=== PATIENT | male | born 1950 | race Caucasian/White ===

== ENCOUNTER 2017-01-13 16:02 | Inpatient (IN) | payer MEDICARE ==
[2017-01-13] MEDS ORDERED: Sodium Chloride 0.9% 1,000 ML IV SCH (16:45)
--- NOTE | 2017-01-13 16:52 | ED PDOC ---
HPI: General Adult Time Seen by Provider: 01/13/17 16:35 Chief Complaint (Nursing): Headache Chief Complaint (Provider): Fever History Per: Patient History/Exam Limitations: no limitations Onset/Duration Of Symptoms: Days (x2) Additional Complaint(s): Young Vasquez is a 66 year old male with a history of gout that presents to the ED with a chief complaint of fever, chills, headache, nasal congestion, and dizziness with rapid head movement that he has been experiencing for the past two days. Patient reports that he took Ibuprofen yesterday in an attempt to relieve his symptoms but that it did not help. He denies any cough, nausea, vomiting, or diarrhea. Of Note: Patient went to his PMD, Dr. Onur Garcia, 2 weeks ago and had a blood test done, showed elevated white count. Past Medical History Reviewed: Historical Data, Nursing Documentation, Vital Signs Vital Signs: Last Vital Signs Temp 102.5 F H 01/13/17 17:14 Pulse 93 H 01/13/17 16:26 Resp 16 01/13/17 16:26 BP 117/76 01/13/17 16:26 Pulse Ox 96 01/13/17 18:05 - Medical History PMH: Denies: Chronic Kidney Disease Other PMH: gout - Family History Family History: States: Unknown Family Hx - Home Medications Home Medications: Ambulatory Orders Medication Instructions Recorded Allopurinol [Zyloprim] 300 mg PO DAILY 11/01/15 Colchicine [Colcrys] 0.6 mg PO DAILY 11/01/15 - Allergies Allergies/Adverse Reactions: Allergies Allergy/AdvReac Type Severity Reaction Status Date / Time No Known Allergies Allergy Verified 03/23/14 11:53 Review of Systems Constitutional: Positive for: Fever, Chills ENT: Positive for: Nose Congestion Respiratory: Negative for: Cough Gastrointestinal: Negative for: Nausea, Vomiting, Diarrhea Neurological: Positive for: Headache, Dizziness (only occurs with rapid head movement) Physical Exam - Reviewed Nursing Documentation Reviewed: Yes Vital Signs Reviewed: Yes - Physical Exam Appears: Positive for: Non-toxic, No Acute Distress Head Exam: Positive for: ATRAUMATIC, NORMOCEPHALIC Skin: Positive for: Normal Color, Warm ENT: Positive for: Normal ENT Inspection (no erythema ) Neck: Positive for: Normal, Supple (no nuchal rigidity) Cardiovascular/Chest: Positive for: Regular Rate, Rhythm. Negative for: Murmur Respiratory: Positive for: Normal Breath Sounds. Negative for: Wheezing Gastrointestinal/Abdominal: Positive for: Normal Exam, Soft. Negative for: Tenderness Neurologic/Psych: Positive for: Alert, Oriented. Negative for: Motor/Sensory Deficits - Laboratory Results Result Diagrams: 01/13/17 17:05 01/13/17 17:05 - ECG O2 Sat by Pulse Oximetry: 96 (RA) Pulse Ox Interpretation: Normal - Progress ED Course And Treament: CXR: HAZY INFILTRATE NOTED RIGHT MEDIAL LOBE BC X 2 LACTATE WNL D/W DR. GALVAN D/W DR. FRANCISCA GARCIAEPHIRiley 1 GM IV X 1 DOSE ZITHROMAX 500MG IV X 1 DOSE Medical Decision Making Medical Decision Making: Impression: Possible Viral Infection Plan: * CMP * CBC * VBG * Blood Culture * Urine Culture * Urinalysis * Flu Swab * Rapid Strep * Chest X-Ray * Tylenol 975 mg PO * Reevaluation Scribe Attestation: Documented by Taina Bolton, acting as a scribe for Pedro Rose PA-C. Provider Scribe Attestation: All medical record entries made by the Scribe were at my direction and personally dictated by me. I have reviewed the chart and agree that the record accurately reflects my personal performance of the history, physical exam, medical decision making, and the department course for this patient. I have also personally directed, reviewed, and agree with the discharge instructions and disposition. Disposition - Clinical Impression Clinical Impression: Pneumonia - Patient ED Disposition Is Patient to be Admitted: Yes - Disposition Disposition Time: 18:05 Condition: FAIR Forms: [employer] (Irish)
[2017-01-13 17:22] LABS: VENOUS BLOOD GAS PCO2 49 mmHg (40-60); VENOUS BLOOD GAS PO2 21 mm/Hg (30-55); VENOUS BLOOD PH 7.38 (7.32-7.43)
[2017-01-13 17:24] LABS: BASO # 0.1 K/uL (0.0-0.2); BASO % 0.7 % (0.0-2.0); EOS # 1.1 K/uL (0.0-0.7); EOS % 7.4 % (0.0-4.0); LYMPH # 1.7 K/uL (1.0-4.3); LYMPH % 11.1 % (20.0-40.0); MEAN CELL VOLUME 88.8 fl (80.0-94.0); MEAN CORPUSCULAR HEMOGLOBIN 28.8 pg (27.0-31.0); MEAN CORPUSCULAR HGB CONC 32.4 g/dL (33.0-37.0); MEAN PLATELET VOLUME 10.7 fl (7.2-11.7); MONO # 1.8 K/uL (0.0-0.8); MONO % 11.5 % (0.0-10.0); NEUT # 10.6 K/uL (1.8-7.0); NEUT % 69.3 % (50.0-75.0); RBC 4.86 Mil/uL (4.40-5.90); WHITE BLOOD COUNT 15.4 K/uL (4.8-10.8)
[2017-01-13 18:02] LABS: ALB/GLOB RATIO 1.4 (1.0-2.1); ALBUMIN 4.1 g/dL (3.5-5.0); ALT/SGPT 41 U/L (21-72); AST/SGOT 28 U/L (17-59); BLOOD UREA NITROGEN 16 mg/dl (9-20); CALCIUM 8.8 mg/dL (8.4-10.2); GFR AFRICAN-AMERICAN > 60; GFR NON-AFRICAN AMERICAN > 60
[2017-01-13] MEDS ORDERED: Azithromycin 500 MG in Sodium Chloride 0.9% 250 ML IVPB STA (18:04)
[2017-01-13] MEDS ORDERED: cefTRIAXone (Rocephin) 1 gm Inj IVPB ONE (18:04)
[2017-01-13] MEDS ORDERED: Azithromycin 500 MG IV IVPB ONE (18:23)
--- NOTE | 2017-01-13 18:41 | RAD ---
HISTORY: fever COMPARISON: None available TECHNIQUE: Chest PA and lateral FINDINGS: Examination limited by habitus. LUNGS: Central vascular congestion. No focal consolidation. Please note that chest x-ray has limited sensitivity for the detection of pulmonary masses. PLEURA: No significant pleural effusion identified. No definite pneumothorax . CARDIOVASCULAR: Cardiomegaly. Ectatic aorta. OSSEOUS STRUCTURES: Mild degenerative changes. VISUALIZED UPPER ABDOMEN: Unremarkable. OTHER FINDINGS: None. IMPRESSION: Central vascular congestion. Cardiomegaly. Ectatic aorta.
[2017-01-13 18:53] LABS: URINE BACTERIA RARE (<OCC); URINE BILIRUBIN NEGATIVE (NEGATIVE); URINE BLOOD NEGATIVE (NEGATIVE); URINE CLARITY CLEAR (Clear); URINE COLOR STRAW (YELLOW); URINE GLUCOSE (UA) NEG (Normal); URINE LEUKOCYTE ESTERASE NEG Leu/uL (Negative); URINE NITRATE NEGATIVE (NEGATIVE); URINE PROTEIN NEGATIVE (NEGATIVE); URINE UROBILINOGEN 0.2-1.0 mg/dL (0.2-1.0)
[2017-01-13] MEDS ORDERED: Alum-Mag Hydrox-Simethicone Susp (30 mL) PO ONE (21:33)
[2017-01-14 07:32] LABS: HEMOGLOBIN 13.4 g/dL (12.0-18.0); MEAN CELL VOLUME 89.1 fl (80.0-94.0); MEAN CORPUSCULAR HEMOGLOBIN 28.9 pg (27.0-31.0); MEAN CORPUSCULAR HGB CONC 32.5 g/dL (33.0-37.0); RBC 4.65 Mil/uL (4.40-5.90); RED CELL DISTRIBUTION WIDTH 13.3 % (11.5-14.5); WHITE BLOOD COUNT 14.9 K/uL (4.8-10.8)
[2017-01-14 07:36] LABS: ALB/GLOB RATIO 1.3 (1.0-2.1); ALBUMIN 3.6 g/dL (3.5-5.0); ALT/SGPT 45 U/L (21-72); AST/SGOT 22 U/L (17-59); BLOOD UREA NITROGEN 13 mg/dl (9-20); CALCIUM 8.6 mg/dL (8.4-10.2); GFR AFRICAN-AMERICAN > 60; GFR NON-AFRICAN AMERICAN > 60; HDL CHOLESTEROL 46 MG/DL (30-70)
[2017-01-14 07:48] LABS: LDL CHOLESTEROL 114 mg/dL (0-129)
[2017-01-14 07:52] LABS: T4 5.42 ug/dl (5.5-11.0)
[2017-01-14] MEDS: Alum-Mag Hydrox-Simethicone Susp (30 mL) PO SCH ×3 (09:23→16:07)
[2017-01-14] MEDS: Pantoprazole 40 mg EC Tab PO SCH (09:24)
--- NOTE | 2017-01-14 10:45 | CT ---
CT chest without IV contrast Indication: order, abnormal chest x-ray Technique: Contiguous axial images were obtained through the chest without intravenous contrast enhancement. Sagittal and coronal reconstructions were generated and reviewed. This CT exam was performed using 1 or more of the falling dose reduction techniques: Automated exposure control, adjustment of the MAA and/or kV according to patient size, and/or use of iterative reconstruction technique. Radiation dose (DLP): 770.74 MGy-cm. Comparison: Chest x-ray performed 01/13/17 Findings: Visualized portions of the inferior thyroid gland appear unremarkable. The unenhanced mediastinal and hilar vascular structures appear unremarkable. Mild cardiomegaly. Patchy medial left lower lobe opacities appear consistent with pneumonia. No pleural effusion. No pneumothorax. 6 mm nodular density along the left fissure. Small calcified lymph nodes versus granulomas, right hilar region. Limited visualization of the noncontrast upper abdomen appears grossly unremarkable. No acute osseous abnormality is detected. Impression: Patchy medial left lower lobe opacities appear consistent with pneumonia. Correlate clinically. Recommend follow-up upon completion of treatment for acute symptoms in order to ensure complete resolution. 6 mm nodular density adjacent to the left fissure, favored to reflect intrapulmonary lymph node. Evidence of prior granulomatous infection. Mild cardiomegaly.
[2017-01-14] MEDS: Enoxaparin 40 mg Syringe SC SCH (11:16)
[2017-01-14] MEDS: Azithromycin 500 MG in Sodium Chloride 0.9% 250 ML IVPB SCH (11:16)
--- NOTE | 2017-01-14 14:19 | CP.PCM.HP ---
History of Present Illness - History of Present Illness History of Present Illness: CC: Fever. 66 y/[facility] M[facility] Fever (102.5 in ER) and chills for 2 ays [employer], Pt taking Tylenol with no relief, symptoms associated to headache, mild to moderate, intensity 4:10 associated to dizziness. Worsening symptoms: Hx of PNA, nasal congestion. Pt denied SOB, cough, CP, palpitation, n/v/d, abdominal pain, urinary symptoms, LOC, syncope, sick contact, recent travel. PMHx: Gout, E Reflux, Hiatus Hernia, Diverticulosis. CXR shows: Central Vascular congestion, no focal consolidation. CT Chest Shows: LLL opacities consistent with PNA. Nodular density adjacent to the left fissure favored to reflect intrapulmonary lymph node. Evidence of prior glanulomatous infection. Present on Admission - Present on Admission Any Indicators Present on Admission: No Review of Systems - Constitutional Constitutional: Chills, Fever, Headache - EENT Eyes: Other (negative) Ears: Other (negative) Nose/Mouth/Throat: Nasal Congestion - Cardiovascular Cardiovascular: Other (negative) - Respiratory Respiratory: Other (negative) - Gastrointestinal Gastrointestinal: Other (negative) - Genitourinary Genitourinary: Other (negative) - Musculoskeletal Musculoskeletal: Arthralgias - Integumentary Integumentary: Other (negative) - Neurological Neurological: Headaches - Psychiatric Psychiatric: Other (negative) - Endocrine Endocrine: Other (negative) - Hematologic/Lymphatic Hematologic: Other (negative) Past Patient History - Past Medical History & Family History Past Medical History?: Yes Pertinent Family History: Unknown - Past Social History Smoking Status: Never Smoked Alcohol: None Drugs: Denies Home Situation {Lives}: With Family - CARDIAC Hx Cardiac Disorders: No - PULMONARY Hx Respiratory Disorders: No - NEUROLOGICAL Hx Neurological Disorder: No - HEENT Hx HEENT Problems: No - RENAL Hx Chronic Kidney Disease: No - ENDOCRINE/METABOLIC Hx Endocrine Disorders: No - HEMATOLOGICAL/ONCOLOGICAL Hx Blood Disorders: No - INTEGUMENTARY Hx Dermatological Problems: No - MUSCULOSKELETAL/RHEUMATOLOGICAL Hx Musculoskeletal Disorders: Yes Hx Arthritis: Yes Hx Falls: No Hx Gout: Yes - GASTROINTESTINAL Hx Gastrointestinal Disorders: No Hx Gastroesophageal Reflux: Yes Hx Hemorrhoids: Yes - GENITOURINARY/GYNECOLOGICAL Hx Genitourinary Disorders: No - PSYCHIATRIC Hx Psychophysiologic Disorder: No Hx Substance Use: No - SURGICAL HISTORY Hx Surgeries: Yes Hx Herniorrhaphy: Yes (X3) - ANESTHESIA Hx Anesthesia: Yes Hx Anesthesia Reactions: No Hx Malignant Hyperthermia: No Has any member of the family had a problem w/ anesthesia?: No Meds Allergies/Adverse Reactions: Allergies Allergy/AdvReac Type Severity Reaction Status Date / Time No Known Allergies Allergy Verified 03/23/14 11:53 Physical Exam - Constitutional Appears: No Acute Distress - Head Exam Head Exam: NORMAL INSPECTION - Eye Exam Eye Exam: PERRL - ENT Exam ENT Exam: Normal Oropharynx - Neck Exam Neck exam: Positive for: Normal Inspection - Respiratory Exam Respiratory Exam: NORMAL BREATHING PATTERN - Cardiovascular Exam Cardiovascular Exam: REGULAR RHYTHM - GI/Abdominal Exam GI & Abdominal Exam: Normal Bowel Sounds, Soft - Extremities Exam Extremities exam: Positive for: normal inspection - Back Exam Back exam: NORMAL INSPECTION - Neurological Exam Neurological exam: Alert, Oriented x3 Additional comments: No motor sensory deficit - Psychiatric Exam Psychiatric exam: Normal Mood - Skin Skin Exam: Warm Results - Vital Signs Recent Vital Signs: Last Vital Signs Temp 99.1 F 01/14/17 07:38 Pulse 81 01/14/17 07:38 Resp 20 01/14/17 07:38 BP 116/69 01/14/17 07:38 Pulse Ox 96 01/14/17 07:38 reviewed J.P. - Labs Result Diagrams: 01/14/17 07:10 01/14/17 07:10 Labs: Laboratory Results - last 24 hr 01/14/17 01/14/17 07:10 07:10 WBC 14.9 H RBC 4.65 Hgb 13.4 Hct 41.4 MCV 89.1 MCH 28.9 MCHC 32.5 L RDW 13.3 Plt Count 133 Sodium 137 Potassium 4.5 Chloride 105 Carbon Dioxide 27 Anion Gap 11 BUN 13 Creatinine 1.2 Est GFR ( Amer) > 60 Est GFR (Non-Af Amer) > 60 Random Glucose 119 H Calcium 8.6 Total Bilirubin 0.5 AST 22 ALT 45 Alkaline Phosphatase 65 Total Protein 6.5 Albumin 3.6 Globulin 2.9 Albumin/Globulin Ratio 1.3 Triglycerides 74 Cholesterol 194 LDL Cholesterol Direct 114 HDL Cholesterol 46 Thyroxine (T4) 5.42 L TSH 3rd Generation 1.60 reviewed J.P. - Imaging and Cardiology Chest x-ray Status: Report reviewed by me (Catrachito) CT scan - chest Status: Report reviewed by me (Catrachiot) Assessment & Plan (1) Pneumonia Status: Acute Priority: High (2) Fever and chills Status: Acute Priority: High (3) Gout Status: Chronic Priority: High (4) Esophageal reflux Status: Chronic Priority: Medium - Assessment and Plan (Free Text) Plan: F/U Blood C-S, Ur C-S, Sputum C-S, Continue Rocephin, Zithromax, Tylenol, Lovenox and rest of Tx. - Date & Time Date: 01/14/17 Time: 12:15
[2017-01-15] MEDS: Azithromycin 500 MG in Sodium Chloride 0.9% 250 ML IVPB SCH (09:24)
[2017-01-15] MEDS: Enoxaparin 40 mg Syringe SC SCH (09:29)
[2017-01-15] MEDS: Pantoprazole 40 mg EC Tab PO SCH (09:29)
[2017-01-15] MEDS: Alum-Mag Hydrox-Simethicone Susp (30 mL) PO SCH ×3 (09:33→18:27)
[2017-01-15 11:14] LABS: HEMOGLOBIN 14.6 g/dL (12.0-18.0); MEAN CORPUSCULAR HEMOGLOBIN 29.5 pg (27.0-31.0); MEAN CORPUSCULAR HGB CONC 33.1 g/dL (33.0-37.0); RBC 4.95 Mil/uL (4.40-5.90); RED CELL DISTRIBUTION WIDTH 12.9 % (11.5-14.5)
[2017-01-15 11:15] LABS: BLOOD UREA NITROGEN 13 mg/dl (9-20); GFR AFRICAN-AMERICAN > 60; GFR NON-AFRICAN AMERICAN > 60
--- NOTE | 2017-01-15 12:51 | CP.PCM.PN ---
Subjective - Date & Time of Evaluation Date of Evaluation: 01/15/17 Time of Evaluation: 12:35 - Subjective Subjective: F/U PNA Pt breathing well, no cough, no chest congestion Objective - Vital Signs/Intake and Output Vital Signs (last 24 hours): Temp Pulse Resp BP Pulse Ox 98.6 F 70 20 139/85 97 01/15/17 07:24 01/15/17 07:24 01/15/17 07:24 01/15/17 07:24 01/15/17 10:00 - Medications Medications: Current Medications Acetaminophen (Tylenol 325mg Tab) 650 mg PO Q4 PRN PRN Reason: Fever >100.4 F Last Admin: 01/14/17 01:14 Dose: 650 mg Al Hydrox/Mg Hydrox/Simethicone (Maalox Plus 30 Ml) 30 ml PO TID [facility] Last Admin: 01/15/17 12:48 Dose: 30 ml Colchicine (Colocrys) 0.6 mg PO BID [facility] Last Admin: 01/15/17 09:29 Dose: 0.6 mg Enoxaparin Sodium (Lovenox) 40 mg SC DAILY [facility] PRN Reason: Protocol Last Admin: 01/15/17 09:29 Dose: 40 mg Ceftriaxone Sodium 1 gm/ (Sodium Chloride) 100 mls @ 100 mls/hr IVPB DAILY [facility] Last Admin: 01/15/17 09:23 Dose: 100 mls/hr Azithromycin 500 mg/ Sodium (Chloride) 250 mls @ 250 mls/hr IVPB DAILY [facility] Last Admin: 01/15/17 09:24 Dose: 250 mls/hr Pantoprazole Sodium (Protonix Ec Tab) 40 mg PO DAILY [facility] Last Admin: 01/15/17 09:29 Dose: 40 mg - Labs Labs: 01/15/17 10:58 01/15/17 10:58 - Constitutional Appears: No Acute Distress - Head Exam Head Exam: NORMAL INSPECTION - Eye Exam Eye Exam: PERRL - ENT Exam ENT Exam: Normal Oropharynx - Neck Exam Neck Exam: Normal Inspection - Respiratory Exam Respiratory Exam: NORMAL BREATHING PATTERN - Cardiovascular Exam Cardiovascular Exam: REGULAR RHYTHM - GI/Abdominal Exam GI & Abdominal Exam: Soft, Normal Bowel Sounds - Extremities Exam Extremities Exam: Normal Inspection - Back Exam Back Exam: NORMAL INSPECTION - Neurological Exam Neurological Exam: Alert, Oriented x3. absent: Motor Sensory Deficit - Psychiatric Exam Psychiatric exam: Normal Mood - Skin Skin Exam: Warm Assessment and Plan (1) Pneumonia Status: Deleted (2) Fever and chills Status: Acute (3) Gout Status: Chronic (4) Esophageal reflux Status: Chronic - Assessment and Plan (Free Text) Plan: Continue IV abx until tomorrow and rest of Tx. f/u Throat, Blood and Urine C-S report.
[2017-01-16 06:49] LABS: HEMOGLOBIN 14.4 g/dL (12.0-18.0); MEAN CELL VOLUME 87.8 fl (80.0-94.0); MEAN CORPUSCULAR HEMOGLOBIN 29.8 pg (27.0-31.0); MEAN CORPUSCULAR HGB CONC 33.9 g/dL (33.0-37.0); RBC 4.83 Mil/uL (4.40-5.90); RED CELL DISTRIBUTION WIDTH 12.9 % (11.5-14.5)
[2017-01-16 08:19] VITALS: BP 136/79; PULSE 56; RESP 20; TEMP 98; O2SAT 96
[2017-01-16] MEDS: Azithromycin 500 MG in Sodium Chloride 0.9% 250 ML IVPB SCH (08:40)
[2017-01-16] MEDS: Enoxaparin 40 mg Syringe SC SCH (08:42)
[2017-01-16] MEDS: Pantoprazole 40 mg EC Tab PO SCH (08:43)
[2017-01-16] MEDS: Alum-Mag Hydrox-Simethicone Susp (30 mL) PO SCH (08:47)
--- NOTE | 2017-01-16 08:58 | IP.NPCORE ---
Pneumonia Progress Notes - Oxygenation Assessment (REQUIRED) Documented 02: Yes O2 Saturation: 96 Oxygen Delivery Method: Room Air Date: 01/16/17 Documented P02: Yes - Blood Cultures (REQUIRED) Culture drawn: Yes Date:: 01/13/17 - Initial Antibiotic Initial Antibiotic given within Four Hours:: Yes - Appropriate Antibiotic Appropriate Antibiotic within 24 hours of Admission:: Yes Current Antibiotic: Zithromax/Rocephin No change in antibiotics: Yes - Pneumonia Vaccine Pneumonia Vaccine: No (Pt refused)
--- NOTE | 2017-01-16 09:06 | PQF GENQUE ---
Dr. Garcia, Please specify type of pneumonia if known in the progress notes: Aspiration pneumonia Please document specific aspirate (food, liquids, etc.) Please indicate if this is postprocedural Bacterial (specify organism) Bronchopneumonia (specify organism) Interstitual pneumonia Organizing pneumonia/BOOP Pneumonia with influenza, meagan flu, or H1N1 flu RSV pneumonia Viral pneumonia Other pneumonia (specify organism or type) OR Clinically unable to determine OR Unknown Please specify the organism causing the pneumonia: after the work up is completed Note: CAP, HAP, and HCAP indicate where the pneumonia was acquired, not a specific type. H and P: came to ER [facility] on 12/13/16 due to Fever (102.5 in ER) and chills for 2 ays Impression:(1) Pneumonia Status: Acute Priority: High (2) Fever and chills Status: Acute Priority: High (3) Gout Status: Chronic Priority: High (4) Esophageal reflux Status: Chronic Priority: Medium WBC:15.4->14.9 Temp:102.5->102.5->100.2-------8/2: 101.7->101.7->99.8 so far Pulse:93->92->115->73 01/13/17: CXR report: Impression: Central vascular congestion. Cardiomegaly. Ectatic aorta. 01/14/17:CT Chest report :Patchy medial left lower lobe opacities appear consistent with pneumonia. Correlate clinically. Recommend follow-up upon completion of treatment for acute symptoms in order to ensure complete resolution. 6 mm nodular density adjacent to the left fissure, favored to reflect intrapulmonary lymph node. Evidence of prior granulomatous infection. Mild cardiomegaly. throat culture: no Beta Strep Group A I solated blood cultures:prelim: no growth after 48 hrs. Rocephin and Azithromycin:IV This form is a permanent part of the medical record Clarification of your documentation is requested to better reflect the severity of illness and intensity of treatment of your patient. Indicators present [] Specify: [] [] Specify: [] [] Specify: [] [] Specify: [] Location in the medical record that reflects the above clinical findings: [] Treatment Provided: [] PHYSICIAN'S RESPONSE Based on your medical judgment of the clinical indicators outlined above please clarify the following: [] Practitioner response [] If unable to determine, please check the box, sign and date. Present On Admission (POA) Indicator: [] Present at the time of admission [] Not present at the time of admission [] Clinically Undetermined In responding to this query, please exercise your independent professional judgment. The fact that a question is asked does not imply that any particular answer is desired or expected. Thank you for your clarification on this documentation. If you have any questions please call. * Thank you, Lissette De Los Santos RN BSN ext. #[phone] MTDD
--- NOTE | 2017-01-16 12:41 | CP.PCM.PN ---
Subjective - Date & Time of Evaluation Date of Evaluation: 01/16/17 Time of Evaluation: 10:30 - Subjective Subjective: F/U PNA Pt with no c/o, o SOB, no chest congestion. Objective - Vital Signs/Intake and Output Vital Signs (last 24 hours): Temp Pulse Resp BP Pulse Ox 98 F 56 L 20 136/79 96 01/16/17 08:19 01/16/17 08:19 01/16/17 08:19 01/16/17 08:19 01/16/17 10:00 - Medications Medications: Current Medications Acetaminophen (Tylenol 325mg Tab) 650 mg PO Q4 PRN PRN Reason: Fever >100.4 F Last Admin: 01/14/17 01:14 Dose: 650 mg Al Hydrox/Mg Hydrox/Simethicone (Maalox Plus 30 Ml) 30 ml PO TID [facility] Last Admin: 01/16/17 08:47 Dose: 30 ml Colchicine (Colocrys) 0.6 mg PO BID [facility] Last Admin: 01/16/17 08:42 Dose: 0.6 mg Enoxaparin Sodium (Lovenox) 40 mg SC DAILY [facility] PRN Reason: Protocol Last Admin: 01/16/17 08:42 Dose: 40 mg Ceftriaxone Sodium 1 gm/ (Sodium Chloride) 100 mls @ 100 mls/hr IVPB DAILY [facility] Last Admin: 01/16/17 08:39 Dose: 100 mls/hr Azithromycin 500 mg/ Sodium (Chloride) 250 mls @ 250 mls/hr IVPB DAILY [facility] Last Admin: 01/16/17 08:40 Dose: 250 mls/hr Pantoprazole Sodium (Protonix Ec Tab) 40 mg PO DAILY [facility] Last Admin: 01/16/17 08:43 Dose: 40 mg - Labs Labs: 01/16/17 06:00 01/15/17 10:58 - Constitutional Appears: No Acute Distress - Head Exam Head Exam: NORMAL INSPECTION - Eye Exam Eye Exam: PERRL - ENT Exam ENT Exam: Normal Oropharynx - Respiratory Exam Respiratory Exam: NORMAL BREATHING PATTERN - Cardiovascular Exam Cardiovascular Exam: REGULAR RHYTHM - GI/Abdominal Exam GI & Abdominal Exam: Soft, Normal Bowel Sounds - Extremities Exam Extremities Exam: Normal Inspection - Back Exam Back Exam: NORMAL INSPECTION - Neurological Exam Neurological Exam: Alert, Oriented x3. absent: Motor Sensory Deficit - Psychiatric Exam Psychiatric exam: Normal Mood - Skin Skin Exam: Warm Assessment and Plan (1) CAP (community acquired pneumonia) Status: Acute (2) Fever and chills Status: Acute (3) Gout Status: Chronic (4) Esophageal reflux Status: Chronic - Assessment and Plan (Free Text) Plan: All cultures were negative, Pt improved and stable to be discharged, continue Zithromax 500 od, repeat CXR in a week, to f/u in my office in 8 days.
[2017-01-16] MEDS ORDERED: Pneumococcal 23-Valent Vaccine IM ONE (12:50)
== END 2017-01-16 14:21 | disposition home or self-care (01) | DRG 195 ==
LOC: H.ER 16:02 → H.ERHOLD 18:25 → H.MEDSURG1 20:41
PROVIDERS: ADMIT Internal Medicine Pulmonary Disease; ATTEND Internal Medicine Pulmonary Disease
PROC: 3E0234Z Introduction of Serum, Toxoid and Vaccine into Muscle, Percutaneous Approach (ICD-10-PCS; principal; 2017-01-16)
DX: J18.9 Pneumonia, unspecified organism (principal); M1A.9XX0 Chronic gout, unspecified, without tophus (tophi); K21.9 Gastro-esophageal reflux disease without esophagitis; K44.9 Diaphragmatic hernia without obstruction or gangrene; Z23 Encounter for immunization; Z87.01 Personal history of pneumonia (recurrent)

== ENCOUNTER 2017-07-28 16:44 | Emergency (ER) | payer MEDICARE ==
[2017-07-28 18:03] VITALS: BP 144/87; PULSE 70; RESP 16; TEMP 97.6; O2SAT 99
[2017-07-28] MEDS ORDERED: Oxycodone/Acetaminophen 5/325 mg Tab PO STA (19:24)
--- NOTE | 2017-07-28 19:29 | ED PDOC ---
Lower Extremity Pain/Injury Time Seen by Provider: 07/28/17 18:48 Chief Complaint (Nursing): Lower Extremity Problem/Injury Chief Complaint (Provider): Foot pain History Per: Patient, Family (daughter) History/Exam Limitations: no limitations Onset/Duration Of Symptoms: Days (x 2 months) Current Symptoms Are (Timing): Still Present Additional Complaint(s): 66 year old male presents to the emergency department complaining of persistent swelling and pain to his left foot, onset after patient sustained a fall on . States he fell 14 ft from a ladder at work and landed on his feet. Patient had a CT done which was negative at that time. He then traveled to the [facility] and had an x-ray there which was positive for fracture, and had a cast placed. Since cast removal, patient has returned to the [place] and is complaining of persistent pain and swelling to the foot. Taking diclofenac without improvement, last dose 2 days ago. Orthopedist: Dr. Bernstein Past Medical History Reviewed: Historical Data, Nursing Documentation, Vital Signs Vital Signs: Last Vital Signs Temp 97.6 F 07/28/17 17:59 Pulse 70 07/28/17 17:59 Resp 16 07/28/17 17:59 BP 144/87 07/28/17 17:59 Pulse Ox 99 07/28/17 17:59 - Medical History PMH: Arthritis Denies: Chronic Kidney Disease Other PMH: Gout - Family History Family History: States: Unknown Family Hx - Home Medications Home Medications: Ambulatory Orders Medication Instructions Recorded Colchicine [Colcrys] 0.6 mg PO BID 11/01/15 Pantoprazole Sodium [Protonix] 40 mg PO DAILY 01/13/17 Azithromycin [Zithromax] 500 mg PO DAILY #6 tab 01/16/17 - Allergies Allergies/Adverse Reactions: Allergies Allergy/AdvReac Type Severity Reaction Status Date / Time No Known Allergies Allergy Verified 03/23/14 11:53 Review of Systems ROS Statement: Except As Marked, All Systems Reviewed And Found Negative Musculoskeletal: Positive for: Foot Pain (and swelling, left foot) Neurological: Negative for: Weakness, Numbness Physical Exam - Reviewed Nursing Documentation Reviewed: Yes Vital Signs Reviewed: Yes - Physical Exam Appears: Positive for: Non-toxic, No Acute Distress Head Exam: Positive for: ATRAUMATIC, NORMAL INSPECTION, NORMOCEPHALIC Skin: Positive for: Normal Color, Warm, Dry Eye Exam: Positive for: EOMI, Normal appearance, PERRL Neck: Positive for: Normal, Painless ROM Pulses-Dorsalis Pedis (L): 2+ Pulses-Dorsalis Pedis (R): 2+ Extremity: Positive for: Normal ROM, Tenderness (over the medial and lateral malleolus), Other (Mild edema, no ecchymosis) Neurologic/Psych: Positive for: Alert, Oriented. Negative for: Motor/Sensory Deficits - ECG O2 Sat by Pulse Oximetry: 99 (RA) Pulse Ox Interpretation: Normal Medical Decision Making Medical Decision Making: Time: 19:24 Initial Plan: --Motrin 600 mg PO --Percocet 1 tab PO --X-Ray of left ankle, left foot, and left tib/fib 19:26 - Spoke to podiatry, who will come to evaluate patient in ED 20:29 - Podiatry resident at bedside, evaluating patient. 20:59 - Discussed with podiatry resident. X-Ray positive for dorsal talar head fracture, healing. Patient instructed to follow up with Dr. Kohli in the [place] office. Given rx for diclofenac gel. Scribe Attestation: Documented by Mona Cardoza, acting as a scribe for Regina Wu PA-C Provider Scribe Attestation: All medical record entries made by the Scribe were at my direction and personally dictated by me. I have reviewed the chart and agree that the record accurately reflects my personal performance of the history, physical exam, medical decision making, and the department course for this patient. I have also personally directed, reviewed, and agree with the discharge instructions and disposition. Disposition - Patient ED Disposition Is Patient to be Admitted: No Counseled Patient/Family Regarding: Studies Performed, Diagnosis, Need For Followup, Rx Given - Disposition Referrals: Sera Kohli DPM [Staff Provider] - Disposition: Routine/Home Disposition Time: 20:59 Additional Instructions: Take medications as instructed. Please follow up with Dr. Kohli at the [place] office: [place], [place] [phone] Forms: [employer] (Portuguese) - POA Present On Arrival: None
[2017-07-28] MEDS ORDERED: Oxycodone/Acetaminophen 5/325 mg Tab ONE (19:47)
--- NOTE | 2017-07-28 21:20 | CP.PCM.CON ---
History of Present Illness - History of Present Illness History of Present Illness: Consult note - Dr. Kohli 66 year old male patient with PMHx of hernia, gout and arthritis was seen and evaluated at bedside for persistent left ankle pain. Patient is accompanied by his daughter and at the time of the visit. Patient's daughter explains that the patient was at work on 05/28/2017 when he fell down from a ladder and acquired the injury to the left ankle. Patient reports that after the fall, he went to the ED at a nearby hospital where he was told he did not have any fractures and was sent home. Patient reports his pain progressively got worst over time and ankle started swelling so he decided to go back to the ED in [facility] about a month ago where he was told he has a fracture in his ankle bone and was placed in a cast. Patient reports that he stayed in the cast for about 26 days before he took it off himself [place] Patient reports that he has been walking on the left foot on and off. Patient reports that the pain has gotten better overtime. Patient reports that he has been putting diclofenac gel at home and has been icing it which helps him relieve the pain and swelling. Patient denies of any recent F/N/V/C/SOB/CP/ headache/diarrhea. Patient denies of any other pedal complains at this time. PMHx: Hernia, Gout, Arthritis PSHx: Hernia repair Allergies: N.K.D.A Medication: Colchicine, Allopurinol SHx: Stopped smoking approx. 20 years ago, occasional EtOH use, Denies of any illicit drug usage Review of Systems - Constitutional Constitutional: As Per HPI Past Patient History - Past Medical History & Family History Past Medical History?: Yes - Past Social History Smoking Status: Never Smoked - CARDIAC Hx Cardiac Disorders: No - PULMONARY Hx Respiratory Disorders: No - NEUROLOGICAL Hx Neurological Disorder: No - HEENT Hx HEENT Problems: No - RENAL Hx Chronic Kidney Disease: No - ENDOCRINE/METABOLIC Hx Endocrine Disorders: No - HEMATOLOGICAL/ONCOLOGICAL Hx Blood Disorders: No - INTEGUMENTARY Hx Dermatological Problems: No - MUSCULOSKELETAL/RHEUMATOLOGICAL Hx Arthritis: Yes - GASTROINTESTINAL Hx Gastrointestinal Disorders: No Hx Gastroesophageal Reflux: Yes Hx Hemorrhoids: Yes - GENITOURINARY/GYNECOLOGICAL Hx Genitourinary Disorders: No - PSYCHIATRIC Hx Psychophysiologic Disorder: No Hx Substance Use: No - SURGICAL HISTORY Hx Surgeries: Yes Hx Herniorrhaphy: Yes (X3) - ANESTHESIA Hx Anesthesia: Yes Hx Anesthesia Reactions: No Hx Malignant Hyperthermia: No Meds Allergies/Adverse Reactions: Allergies Allergy/AdvReac Type Severity Reaction Status Date / Time No Known Allergies Allergy Verified 03/23/14 11:53 Physical Exam - Constitutional Appears: Well, Non-toxic, No Acute Distress - Extremities Exam Extremities exam: Positive for: full ROM, joint swelling, normal capillary refill, pedal edema, pedal pulses present. Negative for: calf tenderness Additional comments: Left LE focused exam VASC: DP/PT pulses are palpable 2/4, Cap refill time: < 3 sec to all digits, Temp. gradient: warm to cool from proximal to distal, mild non-pitting edema noted at the talocrural joint extending distally on the dorsum of the left foot DERM: No open lesions, no interdigital maceration, no clinical suspicion of active infection NEURO: Protective sensation grossly intact ORTHO: Mild pain on palpation at the level of the talocurural joint, no pain during active dorsiflexion, plantarflexion, inversion and eversion; minimal pain during passive dorsiflexion, plantarflexion; MMT: 5/5 in all 4 compartment during ROM with mild discomfort, No pain on palpation of the calf muscle - Neurological Exam Neurological exam: Alert, Oriented x3 - Psychiatric Exam Psychiatric exam: Normal Affect, Normal Mood Results - Vital Signs Recent Vital Signs: Last Vital Signs Temp 97.6 F 07/28/17 17:59 Pulse 70 07/28/17 17:59 Resp 16 07/28/17 17:59 BP 144/87 07/28/17 17:59 Pulse Ox 99 07/28/17 21:01 Assessment & Plan - Assessment and Plan (Free Text) Assessment: 66 year old male patient with PMHx of hernia, gout and arthritis was evaluated at bedside for dorsal talar head fracture Plan: Patient seen and evaluated in ED Patient discussed in details with attending Dr. Seun Jacobs and charts reviewed X-rays of the Foot and Ankle ordered/reviewed - Displaced avulsion fragment noted at the dorsal head of the talus on the lateral view with diffuse sclerosis surrounding the fragment - indicative of callus formation Patient placed in a del toro compression dressing and surgical shoe applied to the left foot Patient provided crutches and educated to remain NWB to the LLE Patient educated of the RICE protocol Patient educated of the possible treatment options for the diagnosis provided Patient and the family demonstrated verbal understanding Patient educated to follow up with Dr. Kohli in her office Thank you for the podiatry consult and allowing to take part in patient care - Date & Time Date: 07/28/17 Time: 20:30
--- NOTE | 2017-07-29 10:33 | RAD ---
PROCEDURE: Left Foot Radiographs. HISTORY: hx of fracture in dec COMPARISON: None. FINDINGS: BONES: There is no acute displaced fracture or bone destruction. Bone alignment is normal. JOINTS: Normal. SOFT TISSUES: There is mild dorsal soft tissue swelling. OTHER FINDINGS: None. IMPRESSION: No acute displaced fracture or dislocation. Mild dorsal soft tissue swelling.
--- NOTE | 2017-07-29 10:38 | RAD ---
PROCEDURE: Left Ankle Radiographs. HISTORY: hx of fracture COMPARISON: None FINDINGS: BONES: Bone alignment and mineralization are normal. There is no acute displaced fracture or bone destruction. JOINTS: Normal. No osteoarthritis. Ankle mortise maintained. Talar dome intact SOFT TISSUES: There is moderate periarticular soft tissue swelling. OTHER FINDINGS: None. IMPRESSION: No acute fracture or dislocation. Moderate periarticular soft tissue swelling.
--- NOTE | 2017-07-29 11:03 | RAD ---
PROCEDURE: Radiographs of the left tibia and fibula. HISTORY: hx of ankel frac dec COMPARISON: None available. TECHNIQUE: Frontal and lateral views obtained. FINDINGS: BONES: There is no acute displaced fracture or bone destruction. An ossific density superior to the anterior talus could represent an accessory ossification center or osteophyte. There is a prominent plantar calcaneal spur. JOINT SPACES: Unremarkable. OTHER FINDINGS: There is mild periarticular soft tissue swelling. IMPRESSION: No acute fracture or dislocation .
== END 2017-07-28 21:50 | disposition home or self-care (01) ==
LOC: H.ER 16:44
DX: L84 Corns and callosities (principal); M19.90 Unspecified osteoarthritis, unspecified site; Z87.891 Personal history of nicotine dependence; M10.9 Gout, unspecified

== ENCOUNTER 2017-09-25 08:13 | Day surgery (SDC) | payer MEDICARE ==
[2017-09-21 08:50] VITALS: BMI 32.8
--- NOTE | 2017-09-25 09:39 | CP.PCM.PN ---
Subjective - Date & Time of Evaluation Date of Evaluation: 09/25/17 Time of Evaluation: 09:37 - Subjective Subjective: 67 y/o male with PMHx of gout, hiatal hernias and diverticulosis seen at bedside in [facility] this morning prior to left foot surgery. Pt says he feels well today and denies F/C/N/V/CP/SOB. Confirms NPO status after midnight last night. States he has mild pain in the foot. States he fell in May and was initially treated in the ED but was told he had no fractures. Pt says that he continued to have pain and followed up with Dr. Alaniz who confirmed he had several fractures and ligament injuries in the foot. At present, he states he has been using a CAM boot for ambulation. PSHx: hernia repair ALL: NKDA SocHx: denies EtOH, cigarette and illicit drug use Objective - Vital Signs/Intake and Output Vital Signs (last 24 hours): Temp Pulse Resp BP Pulse Ox 98 F 65 18 122/81 96 09/25/17 08:47 09/25/17 08:53 09/25/17 08:47 09/25/17 08:47 09/25/17 08:47 - Constitutional Appears: Well, Non-toxic, No Acute Distress - Extremities Exam Additional comments: LLE focused exam: Vasc: DP/PT pulses palpable 2/4. Temperature gradient warm to cool. CFT < 3 sec x 5. Pedal edema localized to dorsum of midfoot and forefoot Derm: Bony prominence noted to dorsomedial midfoot. No open lesions, no erythema , no ecchymosis Neuro: Protective sensation grossly intact Ortho: Mild tenderness to palpation of dorsomedial midfoot at level of 1st and 2nd metatarsal bases. No tenderness elicited upon passive ankle joint ROM assessment. Mild tenderness on passive 1st metatarsal ROM assessment. - Neurological Exam Neurological Exam: Alert, Awake, Oriented x3 - Psychiatric Exam Psychiatric exam: Normal Affect, Normal Mood Assessment and Plan - Assessment and Plan (Free Text) Assessment: 67 y/o male with left foot Lisfranc injury and ankle joint synovitis with lateral ankle instability to go to OR today with Dr. Alaniz for Lisfranc repair, lateral ankle stabilization and ankle arthroscopy Plan: Pt was seen and examined in [facility] Pt NPO status was confirmed All pre-op testing and clearance in chart Pt has exhausted all conservative treatment at this time and is opting for surgical intervention Pt was explained procedure and post-operative course All pt's questions were answered to satisfaction No guarantees were made Pt understands all risks, benefits and complications of procedure Pt will follow-up with Dr. Alaniz within 1 week of surgery
--- NOTE | 2017-09-25 09:49 | CP.SDSHP ---
Same Day Surgery H & P - History Proposed Procedure: left ankle arthroscopy, lateral ankle stabilization, ORIF of Lisfranc fracture dislocation, injection of platelet rich plasma Pre-Op Diagnosis: left Lisfranc fracture dislocation, left ankle synovitis, left lateral ankle instability - Previous Medical/Surgical History Endocrine/Metabolic: Other (Gout) Pain: 4.Moderate Pain Previous Surgical History: hernia repair x3 - Allergies Allergies: Allergies No Known Allergies Allergy (Verified 09/25/17 08:27) - Physical Exam General Appearance: NAD, well nourished Vital Signs: Vital Signs 09/25/17 09/25/17 08:47 08:53 Temperature 98 F Pulse Rate 65 65 Respiratory 18 Rate Blood Pressure 122/81 O2 Sat by Pulse 96 Oximetry Mental Status: Alert & Oriented x3 - {Optional Preform as Required} Ortho: Other (mild tenderness to dorsomedial L midfoot) - Impression Impression: Pt was seen and examined in [facility]. Pt NPO status was confirmed. All pre-op testing and clearance in chart. Pt has exhausted all conservative treatment at this time and is opting for surgical intervention. Pt was explained procedure and post-operative course. All pt's questions were answered to satisfaction. No guarantees were made. Pt understands all risks, benefits and complications of procedure. Pt will follow-up with Dr. Alaniz within 1 week of surgery - Date & Time Date: 09/25/17 Time: 09:49 Short Stay Discharge - Short Stay Discharge Admitting Diagnosis/Reason for Visit: M65.872, M67.272,S93.492A. M25.272 Disposition: HOME/ ROUTINE Referrals: Onur Garcia MD [Primary Care Provider] - Instructions: Oxycodone and Acetaminophen, Cephalexin Additional Instructions (Diet, Activity): -Patient in good/stable condition for discharge home -Pt to resume medications per medical reconciliation -Resume regular diet Please keep dressing clean, dry, & intact to surgical site -Use plastic bag over bandage for showering -Wear post op shoe at all times when ambulating -Call clinic if you see signs of infection (redness, swelling, malodor) -Please make an appointment to see Dr. Alaniz in office/clinic within 1 week for post-op check Progress Note/Discharge Note with Instructions: - Patient evaluated bedside in recovery s/p surgical procedure. - After surgical procedure patient in NAD - (+) Void, (+) Appetite - Capillary refill time <3s and NVSI intact. - Patient denies complaints at this time - Post operative instructions and plan of care explained to patient at length. - Pt. acknowledges understanding. - Patient stable for DC per podiatric surgery
[2017-09-25] MEDS ORDERED: ceFAZolin 2 GM in Sodium Chloride 0.9% 100 ML IVPB ONE (09:53)
[2017-09-25] MEDS ORDERED: Bupivacaine 0.5% Inj(30mL) IJ ONE (09:53)
[2017-09-25] MEDS ORDERED: Lidocaine 1% Inj (20ml) IJ ONE (09:53)
[2017-09-25] MEDS ORDERED: Sodium Chloride 0.9% 1,000 ML IV SCH (10:00)
[2017-09-25] MEDS ORDERED: Propofol 10 mg/ml Inj (20 ML) ONE (10:18)
[2017-09-25] MEDS ORDERED: Succinylcholine 200 mg/10 ml Inj IV ONE (10:18)
[2017-09-25] MEDS ORDERED: Lidocaine Hydrochloride 1% 20 ML ONE (10:23)
[2017-09-25] MEDS ORDERED: Bupivacaine 0.5% Inj(30mL) ONE (10:24)
[2017-09-25] MEDS ORDERED: Lidocaine 1% w Epi 1:100,000 Inj ONE (10:24)
[2017-09-25] MEDS ORDERED: Lactated Ringer's 1,000 ML IV ONE ×2 (10:53→14:00)
[2017-09-25] MEDS ORDERED: Midazolam 2 MG/2 ML VIAL ONE (10:58)
[2017-09-25] MEDS ORDERED: EPINEPHrine 1 mg/ml (1:1000) Inj ONE (11:00)
[2017-09-25] MEDS ORDERED: Dexamethasone 4 mg/1 ml ONE (11:12)
[2017-09-25] MEDS ORDERED: Rocuronium 10 mg/ml (5 ml) ONE ×2 (11:14→14:36)
[2017-09-25] MEDS ORDERED: Lidocaine 2% PF (10 ml) Amp INJ ONE (11:30)
[2017-09-25] MEDS ORDERED: EPINEPHrine 1 mg/ml (1:1000) Inj IV ONE (11:30)
[2017-09-25] MEDS ORDERED: ePHEDrine 50 mg/ml Inj ONE (12:41)
[2017-09-25] MEDS ORDERED: Esmolol 100 mg/10ml Inj IV ONE (12:50)
[2017-09-25] MEDS ORDERED: Bupivacaine 0.5% 50 ML IJ ONE (15:15)
[2017-09-25] MEDS ORDERED: Lactated Ringer's 500 ML IV ONE (15:32)
[2017-09-25] MEDS ORDERED: Oxycodone/Acetaminophen 5/325 mg Tab PO PRN ×2 (15:33)
--- NOTE | 2017-09-25 15:38 | PCM.SURG1 ---
Surgeon's Initial Post Op Note - Surgeon's Notes Surgeon: Dr. Alaniz Tire Stripper: Dr. Manzo PGY-3, Dr. Terrell PGY-2, Dr. Diallo PGY-1 Type of Anesthesia: General Endo, Block Regional Anesthesia Administered By: Dr. Bailey/Dr. Whittaker Pre-Operative Diagnosis: left foot Lisfranc fracture dislocation, left lateral ankle instability, left ankle joint synovitis Operative Findings: see operative report. I: 8cc 1% Lidocaine plain pre- operatively, 10cc 0.5% Marcaine plain postoperatively. M: Synthes 4.0mm x 30mm cannulated screw, [employer] Lapidus plate, Davis 3.5mm x 24mm locking screw, 3.5mm x 34mm non-locking screw, 3.5mm x 20mm locking screw, 2.7 ankle arthroscope, Arthrex Internal Brace. Tourniquet 350mmHg to left thigh: 88 min inflated, let down, reinflated for 125 min Post-Operative Diagnosis: same Operation Performed: left foot primary arthrodesis of Lisfranc joint, left lateral ankle stabilization, left ankle arthroscopy Specimen/Specimens Removed: none Estimated Blood Loss: EBL {In ML}: 20 Blood Products Given: N/A Drains Used: No Drains Post-Op Condition: Good Date of Surgery/Procedure: 09/25/17 Time of Surgery/Procedure: 15:39
[2017-09-25] MEDS ORDERED: Lactated Ringer's 1,000 ML IV SCH (15:45)
--- NOTE | 2017-09-25 16:49 | RAD ---
PROCEDURE: Intraoperative fluoroscopy HISTORY: OR COMPARISON: Not available TECHNIQUE: Intraoperative fluoroscopy was provided for midfoot surgical fixation. Total time of fluoroscopy was less than 1 hour. FINDINGS: Multiple fluoroscopic spot films are submitted demonstrating progressive placement of orthopedic hardware. Films are on file for review. IMPRESSION: Fluoroscopy provided.
--- NOTE | 2017-09-25 16:58 | RAD ---
PROCEDURE: Left Foot Radiographs. HISTORY: s/p left foot and ankle surgery COMPARISON: 07/28/2017 FINDINGS: BONES: Status post fixation across 1st through 3rd TMT articulations, status post Lisfranc injury. No acute fracture identified. JOINTS: Normal. SOFT TISSUES: Normal. OTHER FINDINGS: None. IMPRESSION: Orthopedic fixation 1st through 3rd TMT articulations.
[2017-09-25 17:08] VITALS: RESP 18
[2017-09-25 19:03] VITALS: BP 152/98; PULSE 82; TEMP 98.2; O2SAT 97
--- NOTE | 2017-09-27 19:05 | PCM.OP ---
Operative Report - Operative Report Date of Surgery/Procedure: 09/25/17 Time of Surgery/Procedure: 11:00 Surgeon: Dr. Alaniz DPM Operator Helper: Govind reyes PGY-3, Erik Galeano PGY-2, Micheline Diallo PGY-1 Anesthesia/Sedation: General LMA with Regional lower extremity block Pre-Operative Diagnosis: Pre-Operative Diagnoses: #1. Left ankle synovitis #2. Left ankle instabilization #3. Left foot lisfranc joint fracture and dislocation Post-Operative Diagnosis: #1. Left ankle synovitis #2. Left ankle instabilization #3. Left foot lisfranc joint fracture and dislocation Indication for Surgery: Indications: The patient is a 67 year-old M with the above diagnoses. The patient has exhausted conservative treatment at this time and now requests surgical intervention. The patient signed the consent after careful explanation of risks, benefits, complication and alternatives for surgical procedure. No guarantees were given nor implied. 2 grams Ancef IV were given to the pt hour prior to the procedure. NPO status was confirmed prior to taking pt to the OR. Operative Findings: The patient was brought to the operating room and placed on the operating room table in supine position. A well-padded pneumatic Thigh tourniquet was placed to the patient's Left Thigh. Once general anesthesia was achieved, the left lower extremity was then prepped and draped in usual sterile manner. Esmarch was utilized to exsanguinate the patient's Left lower extremity. Pneumatic Thigh tourniquet was then inflated to 350 mmHg and procedure began. Procedure/Operation Description: #1. Arthroscopic debridement of left ankleAttention was then directed to the dorsal aspect of the patients left ankle, where the ankle was infiltrated with 8 ml of 1% Lidocaine plain. Next, utilizing a surgical marking pen, anatomical landmarks were marked such as the tibial anterior tendon and the medial and lateral gutters were identified. Next , Utilizing a #11 blade, a medial portal was created with a hemostat down to the level of the ankle joint. The ankle joint was then entered. Next, a 2.7 scope was entered into the medial portal. There was an abundance of hypertrophic synovium as well as fibrous bands within the ankle joint. A lateral portal was then created utilizing a #11 blade and a hemostat down to the level of the ankle joint. The trocar was placed into the lateral portal and triangulated along with the 2.7scope. At this time, a 3.5mm aggressive shaver was inserted into the lateral portal and debridement of the hypertrophic synovium and fibrous bands began. The ankle joints were inspected for any osteochondral defects however did not have any signs of defects. Once the debridement was completed, the scope and the shaver were removed from each portal. The skin was reapproximated and copated with #4-0 Monocryl. #2. Lateral ankle stabilization with Arthrex interarnal brace and suture kiera. Attention was directed to the lateral aspect of the left ankle joint overlying where the anterior talofibular ligament is located. A curvilinear incision was created overlying the ATFL location at the level of the lateral gutter of the ankle joint. The incision was carried through subcutaneous tissues with care being taken to identify all vital neurovascular structures; all bleeders were cauterized and ligated as necessary. Utilizing a #15 blade, the capsular structures were incised in a vertical fashion overlying the roof of the sinus tarsi. Once the capsular structures were incised, it was noted that the ATFL was completely ruptured at the distal portion where it inserts onto the talus with very few fibers intact. At this time, the ankle joint was inverted and the articular cartilage and lateral gutter were inspected for any osteochondral lesions and none were noted. The ankle joint was completely irrigated. Next, the 3.4mm drill hole was created on the non-articulating surface of the talus directed approximately 45 degrees prevent to violating the ankle joint. Then a 4.75mm Swivelock tap was utilized. The fiber tape from the Internal Brace was fed through the eyelet of the 4.75mm Swivelock and the anchor was inserted into the talar tunnel with a mallet to assist with proper placement and fit into the talus. To avoid over-tensioning, the hemostat was placed in between the fiber tape. The surgical site was irrigated with copious amount of normal sterile saline. Next, a 2.4 mm drill bit from [employer] was utilized to create 1 drill hole in the lateral aspect of the talus body and one Arthrex 3.0 suture kiera was placed in the drill hole. The sutures were then fed through the ATFL and Capsular tissues in an over and over suture fashion. While performing this, the foot was placed in everted and slightly dorsiflexion position. Next, the 2.7mm drill bit from the Internal Brace kit was utilized to create a drill hole 1.5cm proximal to the distal tip of the fibula. The drill hole was then tapped with a 3.5mm tap for at least two turns to securely fit into the fibula. Afterwards, the 3.5mm Swivelock which was loaded with the fibertape was placed into the drill hole. At this time, To avoid over-tensioning, the hemostat was placed in between the fiber tape. Excess fibertape was cut and removed from the operative field. The fiber tape was then set aside on the operative field to perform the modified brostom technique. The ankle was stressed in eversion and inversion with excellent stability noted. The surgical site was irrigated with copious amount of normal sterile saline. Deep tissue was reapproximated with #2-0 and #- 3-0 vicryl and subcutanues was reapproximatedw tih #4-0 vicryl. Skin was respproximatedw tih #4-0 Monocry as in a running suture technique. #3. Platelet rich plasma graft application to the left ankle Approximately 60cc of the patients own blood was harvested from the Hep-Lock. The 60cc of autologous blood was placed in the Centrifuge system which was added with an anticoagulant and centrifuged down to yield approximately 5cc of platelet rich plasma. The platelet rich plasma solution was then placed in a syringe.This platelet rich plasma autologous graft was implanted into the patients Left lateral ankle within the surgical site. #4. Left foot lisfranc joint arthrodesisAttention was directed to the dorsal aspect of the left foot 1s metatarsal base and medial cuneiform. The 1st metatarsal medial cuneiform joint was confirmed under the intra operative fluoroscopy. Approximately 6 cm linear longitudinal incision was made overlying dorsal medal aspect of the 1st metatarsal and medial cuneiform joint. The incision wasdeepened through the subcutaneous tissues using sharp and blunt dissection. Care was taken to identify and retract all vital neurovascular structures. All bleeders were cauterized and ligated as necessary. Linear longitudinal incision was made in the dorsal medial joint capsule. The first metatarsal cuneiform joint was identified with intraoperative c arm. Proximal and distal soft tissue dissection was performed for good joint exposure. Next, Utilizing sagittal bone saw, resection of the joint begins at the 1st metatarsal base and was made parallel and just distal to the articular cartilage. Next, resection of the cuneiform was then carried out just proximal to the articular surface, parallel to the joint line and was made minimal wedging laterally. Next, Irrigation was performed with copious amount of sterile normal saline. Next, Utilizing a 0.062 inch k wire, 1st metatarsal base and medial cuneiform was fixed temporally from plantar aspect of the metatarsal base to dorsal aspect of medial cuneiform. Next, Davis FigCard Lapidus plate was applied to the dorso-medial aspect of 1st metatarsal and cuneiform joint with 3.5 mm locking and non-locking screws. The temporally k wire fixation was removed. The good alignment was confirmed with intraoperative c arm. Next small amount of bone putty was used to between 1st metatarsal base and cuneiform. The wound site was flushed with copious amount of sterile normal saline. Next, attention was re-directed to the between 2nd and 3rd metatarsal base, utilizing #15 blade, approximately 6 cm longitudinal incision was made. . The incision was deepened through the subcutaneous tissues using sharp and blunt dissection. Care was taken to identify and retract all vital neurovascular structures. All bleeders were cauterized and ligated as necessary. Linear longitudinal incision was made in the dorsal aspect of the 2nd metatarsal-middle cuneiform joint capsule. Proximal and distal soft tissue dissection was performed for good joint exposure. Next, Utilizing sagittal bone saw, articular cartilage of the distal aspect of the middle cuneiform and base of the 2nd metatarsal base were resected. Next, utilizing Synthes size 15 bone staple was inserted to the 2nd metatarsal and middle cuneiform joint and the compression was excellent. Next, longitudinal incision was made dorsal aspect of 3rd metatarsal and lateral cuneiform joint. Proximal and distal soft tissue dissection was performed for good joint exposure Utilizing sagittal bone saw, articular cartilage of the distal aspect of the lateral cuneiform and base of the 3nd metatarsal base were resected. Next, Synthes 4.0 mm cannulated screw was inserted to the 3rd metatarsal and lateral cuneiform and compressed All located of the hardware were confirmed under the intra-operative fluoroscopy. The surgical site was flushed with copious amount of normal sterile saline. Soft tissue was reapproximated with #3-0 and 4-0 vicryl and skin was reapproximated with #4-0 Monocryl. Steri-strips were now applied to the incision. The medial aspect of the left foot was infiltrated with 10 ml of 0.5 % of Marcaine plain. All sites were now dressed with moist 4x4 gauze, dry 4x4 gauze, arnoldo and below knee cast. Estimated Blood Loss: 20 Complications: None Discharge & Condition: The patient tolerated the anesthesia and procedure well and was escorted to the recovery room with vital signs stable and neurovascular status intact to the left lower extremity. Left lower extrmeity below knee cast was bivalved. This patient will follow up with
== END 2017-09-25 19:07 | disposition home or self-care (01) ==
LOC: H.OPSURG 08:13
PROVIDERS: ATTEND Podiatrist
DX: M65.872 Other synovitis and tenosynovitis, left ankle and foot (principal); M25.372 Other instability, left ankle; S92.812A Other fracture of left foot, initial encounter for closed fracture; X58.XXXA Exposure to other specified factors, initial encounter; Z87.891 Personal history of nicotine dependence
CPT/HCPCS: 0232T; 29897; 29899; 73630; 97116; 97161; C1713; C1769; G8978; G8979; G8980; J0171; J0330; J0690; J1100; J2001; J2250; J2704; J2765; J3010; J7030; J7120